=== PATIENT | female | born 1945 | race Caucasian/White ===

== ENCOUNTER 2018-08-29 19:09 | Inpatient (IN) ==
[2018-08-29 20:12] LABS: BASO# 0.01 X1000 (0.0-0.2); BASO% 0.1 % (0.0-0.8); EOS# 0.04 X1000 (0.0-0.7); EOS% 0.5 % (0.0-10.0); HEMATOCRIT 47.5 % (37.0-47.0); HEMOGLOBIN 16.5 g/dL (12.0-16.0); LYMPH# 0.55 X1000 (1.2-3.4); LYMPH% 6.8 % (20.5-51.1); MCH 30.5 PG (27-31); MCHC 34.7 g/dL (33-37); MCV 87.8 FL (81-99); MONO# 0.43 X1000 (0.11-0.59); MONO% 5.3 % (1.7-9.3); MPV 10.3 FL (7.4-10.4); NEUT# 7.05 X1000 (1.4-6.5); NEUT% 87.3 % (42.2-75.2); PLT 161 X1000 (130-400); RBC 5.41 XMIL (4.2-5.4); RDW 12.1 % (11.5-14.5); WBC 8.08 X1000 (4.8-10.8)
[2018-08-29] MEDS ORDERED: NS 1,000 ML IV ONE (20:34)
[2018-08-29] MEDS ORDERED: MORPHINE IV ONE (20:35)
[2018-08-29] MEDS ORDERED: ZOFRAN IV ONE (20:35)
[2018-08-29 20:42] LABS: AGAP 16; ALB/GLOB RATIO 1.7; ALBUMIN 4.3 g/dL (3.5-5.0); ALKALINE PHOSPHATASE 74 U/L (32-104); AMYLASE 29 U/L (20-200); BUN 13 mg/dL (8-22); CHLORIDE 101 mmol/L (98-107); COSMO 288; CREATININE 0.6 mg/dL (0.5-0.9); ESTIMATED GFR > 60; GLUCOSE 112 mg/dL (70-104); GOT 21 U/L (10-30); GPT 14 U/L (10-36); LIPASE 14 U/L (13-60); POTASSIUM 3.6 mmol/L (3.5-5.1); SODIUM 144 mmol/L (136-145); TCO2 27 mmol/L (25-35); TOTAL BILIRUBIN 3.02 mg/dL (0.20-1.00); TOTAL PROTEIN 6.8 g/dL (6.3-8.3)
[2018-08-29] MEDS ORDERED: ZOFRAN IV PRN (23:51)
[2018-08-30] MEDS: NS 1,000 ML IV SCH ×2 (01:45→13:47)
[2018-08-30] MEDS: MORPHINE IV PRN ×3 (02:05→23:59)
--- NOTE | 2018-08-30 06:13 | Diag Imaging Result Doc PS360 ---
CT ABD/PELVIS W/IV CONT ONLY - 08/29/2018 INDICATION: abd pain COMPARISON: 07/10/2018 FINDINGS: The lung bases are clear and the heart size is normal. There is stable or recurrent fluid dilation of proximal small bowel, with collapsed distal small bowel. The transition point appears to be in the right lower quadrant. Slightly decreased, very small fat-containing umbilical ventral hernia. Normal appendix. No free air or drainable fluid. Uterus is absent. Urinary bladder and rectum are normal. The gallbladder is absent. Otherwise all abdominal organs remain normal. Stable mild diverticulosis of the colon. There are moderate degenerative changes of the spine. No acute or suspicious bony lesion. IMPRESSION: Stable or recurrent distal small bowel obstruction. The transition point is probably in the right lower quadrant. This exam was performed using automated exposure control, adjustment of mA or kV according to patient size, and/or use of iterative reconstruction technique Electronically signed by Ho Quispe 08/30/2018 6:11 AM
--- NOTE | 2018-08-30 06:59 | GENERAL SURGERY CONSULTATION ---
DATE: 08/30/2018 REQUESTING PHYSICIAN: Hospitalist service. REASON FOR CONSULTATION: Consult is concerning bowel obstruction. HISTORY OF PRESENT ILLNESS: A 73-year-old, female known to me who started having abdominal pain and came to emergency department. She had a CT scan that showed another bowel obstruction. She did report this time that she has had nausea, vomiting, and the pain was not as severe as it was described for her previous one, but still reported it. She did have a bowel movement the day prior to presentation but they were two very small stools and passed gas. She subsequently has been admitted. She has gotten pain medicine twice but feels a little bit better. PAST MEDICAL HISTORY: Includes hypertension and previous small-bowel obstruction. PAST SURGICAL: Hysterectomy, tonsillectomy, and colon resection. ALLERGIES: Include penicillin. HOME MEDICATIONS: Reviewed. FAMILY HISTORY: Reviewed with the patient and noncontributory. SOCIAL HISTORY: Lives at home. REVIEW OF SYSTEMS: A full 10 point review of systems was obtained and negative except as specified in the HPI. PHYSICAL EXAMINATION: Vital Signs: The patient is currently afebrile. Her vital signs are stable. General Examination: No acute distress. female, looks stated age. HEENT: Normocephalic, atraumatic. Pupils equal, round, and reactive to light. Mucous membranes moist. Oropharynx benign. Neck: Supple. Trachea midline. Cardiovascular: Regular rate and rhythm. Lungs: Grossly clear. Abdomen: Soft. Mildly distended. No real tenderness to palpation. No peritoneal signs. Previous midline scar noted. Extremities: Moves all extremities. Neurologic: Grossly intact. Skin: No signs of jaundice. Vascular: All extremities perfused. LABORATORY: White blood cell count 8, hematocrit 47, platelet count 161,000. Remainder of labs reviewed. Of note, her bilirubin is elevated at 3.02. Imaging reviewed, consistent with bowel obstruction. The gallbladder looks surgically absent. ASSESSMENT AND PLAN: A 73-year-old female with recurrent small-bowel obstruction. Recurrent small bowel obstruction. At this time, the patient clinically looks okay but given her short interval turnaround for a bowel obstruction, I did offer surgical intervention with exploratory laparotomy. I discussed extensively with the patient and her daughter. At this point, they want to contemplate surgery but want to discuss it with other family members. At this point, would keep her nothing per oral and monitor. If they decide on surgical intervention, we will go. Did discuss with them the risks, benefits, and alternatives of the procedure. We could potentially get her through this without surgical intervention but if she comes back in for a third obstruction in a short interval, I would definitely recommend that she needs surgery. We will continue to follow with you. cc: MD Faizan Henriquez MD
--- NOTE | 2018-08-30 07:00 | EKG Report ---
Test Performed on : 08/30/2018 06:55:28 AM Test Reason : chest pain Blood Pressure : / mmHG Vent. Rate : 062 BPM Atrial Rate : 062 BPM P-R Int : 214 ms QRS Dur : 098 ms QT Int : 474 ms P-R-T Axes : 078 000 059 degrees QTc Int : 481 ms Sinus rhythm. with 1st degree AV block. Nonspecific T wave abnormality Prolonged QT Abnormal ECG When compared with ECG of 29-AUG-2018 21:21, (Unconfirmed) No significant change was found Confirmed by Bucky PERES, Robert Caldera ([id number]) on 08/30/2018 10:13:38 PM
--- NOTE | 2018-08-30 07:08 | EKG Report ---
Test Performed on : 08/29/2018 9:21:46 PM Test Reason : md ordered Blood Pressure : / mmHG Vent. Rate : 079 BPM Atrial Rate : 079 BPM P-R Int : 216 ms QRS Dur : 094 ms QT Int : 436 ms P-R-T Axes : 066 -07 042 degrees QTc Int : 499 ms Sinus rhythm. with 1st degree AV block. Minimal voltage criteria for LVH, may be normal variant Nonspecific T wave abnormality Prolonged QT Abnormal ECG When compared with ECG of 09-JUL-2018 22:08, premature ventricular complexes. are no longer present Unconfirmed Result
[2018-08-30 07:27] LABS: BASO# 0.01 X1000 (0.0-0.2); BASO% 0.2 % (0.0-0.8); EOS# 0.12 X1000 (0.0-0.7); EOS% 2.1 % (0.0-10.0); HEMATOCRIT 40.9 % (37.0-47.0); INR 1.04; LYMPH% 21.1 % (20.5-51.1); MCHC 34.2 g/dL (33-37); MCV 90.5 FL (81-99); MONO# 0.43 X1000 (0.11-0.59); MONO% 7.5 % (1.7-9.3); MPV 9.8 FL (7.4-10.4); NEUT# 3.94 X1000 (1.4-6.5); NEUT% 69.1 % (42.2-75.2); PLT 131 X1000 (130-400); PROTIME 14.4 Seconds (11.0-16.0); RBC 4.52 XMIL (4.2-5.4)
[2018-08-30 07:31] LABS: AGAP 9; BUN 14 mg/dL (8-22); CHLORIDE 107 mmol/L (98-107); COSMO 288; CREATININE 0.6 mg/dL (0.5-0.9); ESTIMATED GFR > 60; GLUCOSE 83 mg/dL (70-104); MAGNESIUM 2.2 mg/dL (1.5-2.7); POTASSIUM 3.3 mmol/L (3.5-5.1); SODIUM 145 mmol/L (136-145); TCO2 29 mmol/L (25-35)
--- NOTE | 2018-08-30 13:38 | PROGRESS NOTE ---
DATE: 08/30/2018 SUBJECTIVE: Ms. Lofton presented because she had not been able to have a bowel movement, small bowel obstruction. Abdominal and pelvic CT stable or recurrent distal small bowel obstruction. Transient point is probably at the right lower quadrant. She is not having nausea at this time. Dr. Garcia had seen her. He had talked about doing surgery. I think they would like to wait. At this time, clinically looks okay. Short interval turnaround for a bowel obstruction, so did offer surgical invention, exploratory laparotomy, but they would like to be conservative. She does not have an NG tube in. PHYSICAL EXAMINATION: Vital Signs: Temperature 98.1 degrees, pulse 70, respirations 16, blood pressure 150/65. Height 5 feet 3 inches. Weight 173 pounds. HEENT: Pupils are equal and round. Lungs: Clear in all lung johnson. Cardiovascular Exam: Regular rhythm and rate without murmur or S3. Abdomen: Soft. Skin: Warm and dry. LABORATORY DATA: On review of lab, electrolytes and CBC look okay. PLAN: Will continue conservative therapy, getting normal saline at 75 mL an hour and she is NPO. Will look at her home medications and I guess will continue her medications for now, including her aspirin, her flecainide, and her thyroid. cc: Faizan Garza MD
[2018-08-30] MEDS: NORVASC PO SCH (13:46)
[2018-08-30] MEDS: TAMBOCOR PO SCH ×2 (13:46→20:26)
[2018-08-30] MEDS: SYNTHROID PO SCH (13:46)
[2018-08-30] MEDS ORDERED: PAXIL PO ONE (14:12)
[2018-08-30] MEDS ORDERED: PAXIL PO SCH (14:30)
[2018-08-30] MEDS: MICARDIS PO SCH (15:15)
[2018-08-30] MEDS: ASPIRIN EC PO SCH (20:26)
--- NOTE | 2018-08-31 06:03 | GENERAL SURGERY PROGRESS NOTE ---
DATE: 08/31/2018 SUBJECTIVE: Patient is doing okay. She said he passed some gas. She is wanting to try something to drink. The family wanted to hold off on any kind of surgery. OBJECTIVE: Vital Signs: The patient is currently afebrile. Her vital signs are stable. General: No acute distress. HEENT: Normocephalic, atraumatic. Pupils equal, round, reactive to light. Mucous membranes moist. Oropharynx benign. Neck: Supple. Trachea midline. Cardiovascular: Regular rate and rhythm. Lungs: Grossly clear. Abdomen: Soft, nontender, minimally distended. Extremities: Moves all extremities. Neurologic: Grossly intact. Skin: No signs of jaundice. Vascular: All extremities perfused. LABORATORY: None this morning as of yet. ASSESSMENT AND PLAN: A 73-year-old with recurrent small-bowel obstruction. Recurrent small-bowel obstruction. This time family wants to hold off on any surgery, but the patient is improving. We will start her on a clear liquid diet and see how she does. Informed the patient do not take in too much, and stop if she starts getting full. We will monitor her closely. cc: MD Faizan Henriquez MD
[2018-08-31] MEDS: MORPHINE IV PRN ×5 (06:44→23:12)
[2018-08-31] MEDS: MICARDIS PO SCH (08:16)
[2018-08-31] MEDS: NORVASC PO SCH (08:16)
[2018-08-31] MEDS: TAMBOCOR PO SCH ×3 (08:16→23:40)
[2018-08-31] MEDS: SYNTHROID PO SCH (08:16)
[2018-08-31] MEDS: PAXIL PO SCH (08:16)
[2018-08-31] MEDS: NS 1,000 ML IV SCH ×2 (09:37→23:40)
--- NOTE | 2018-08-31 09:44 | PROGRESS NOTE ---
DATE: 08/31/2018 SUBJECTIVE: Ms. Cali is sitting up on the commode. She has passed some gas, but has not had a bowel movement. She is not nauseated. She is still getting some morphine. Her IV is in her right anticubitus. She is still on a liquid diet. EKG from this morning shows normal sinus rhythm. ASSESSMENT AND PLAN: 1. Patient and family would like to hold off on surgery. The patient seems to be improving. Continue liquid diet. They are trying to think about getting a pain pump for her lower lumbar spine at some point. To try and increase her strength and ambulation, I will get Physical Therapy involved. 2. I reviewed her orders. I do not see any change right now. She is on flecainide 100 mg b.i.d., Synthroid 50 mg daily, Paxil 30 mg a day, Micardis 80 mg p.o. daily. Appears to be in sinus rhythm. She has a history of atrial fibrillation. We will increase activity and get physical therapy. Hopefully the bowels will open up and be able to go home. cc: Faizan Garza MD MTDD
[2018-08-31] MEDS: ASPIRIN EC PO SCH ×2 (19:46→23:40)
[2018-09-01] MEDS ORDERED: MORPHINE ONE (02:42)
--- NOTE | 2018-09-01 06:35 | GENERAL SURGERY PROGRESS NOTE ---
DATE: 09/01/2018 SUBJECTIVE: The patient seems to be doing okay. She has had a bowel movement. She is not sick to her stomach. OBJECTIVE: Vital Signs: The patient is currently afebrile. Her vital signs are stable. General Examination: No acute distress. HEENT: Normocephalic, atraumatic. Pupils equal, round, reactive to light. Mucous membranes moist. Oropharynx benign. Neck: Supple. Trachea midline. Cardiovascular: Regular rate and rhythm. Lungs: Grossly clear. Abdomen: Soft. No distention. No tenderness. Extremities: Moves all extremities. Neurologic: Grossly intact. Skin: No signs of jaundice. Vascular: All extremities perfused. Laboratory: None this morning. ASSESSMENT AND PLAN: A 73-year-old with recurrent small-bowel obstruction. Recurrent small bowel obstruction. At this time, she seems to be doing well. We will put her on a GI soft diet and see how she does. Informed the patient to take it easy with the diet. If she seems to be doing well, hopefully, she can be discharged in the near future. cc: MD Faizan Henriquez MD
[2018-09-01] MEDS: SYNTHROID PO SCH ×2 (07:21→08:20)
[2018-09-01] MEDS: NORVASC PO SCH (08:55)
[2018-09-01] MEDS: PAXIL PO SCH (08:55)
[2018-09-01] MEDS: MICARDIS PO SCH (08:55)
[2018-09-01] MEDS: TAMBOCOR PO SCH (08:55)
--- NOTE | 2018-09-01 09:33 | PROGRESS NOTE ---
DATE: 09/01/2018 SUBJECTIVE: She had a bowel movement yesterday evening. The pain is less. Abdomen nondistended. She is going to try some soft food. OBJECTIVE: Vitals: Temperature 98.1 degrees, pulse 65, respirations 18, blood pressure 151/61. Eyes: Pupils are equal and round. Lungs: Clear in all lung johnson. Cardiovascular: Regular rhythm and rate without murmur or S3. Abdomen: Soft. Skin: Warm and dry. URINE OUTPUT: 2800 mL. ASSESSMENT AND PLAN: 1. Recurrent small bowel obstruction. Seems to be doing better. Advance her diet. See how she does. She may get to go home this evening. She is still getting morphine if needed for pain. 2. Hypothyroidism, appears to be euthyroid. 3. Hypertension. Blood pressure well controlled. She is on Norvasc 5 mg a day, Micardis 80 mg daily. cc: Faizan Garza MD
[2018-09-01] MEDS ORDERED: ULTRAM PO PRN (12:00)
[2018-09-01] MEDS: NS 1,000 ML IV SCH (13:17)
[2018-09-01 14:50] VITALS: BP 132/70
--- NOTE | 2018-09-01 16:29 | HISTORY AND PHYSICAL ---
HISTORY OF PRESENT ILLNESS: She was having abdominal pain and bloating CT of the abdomen showed recurrent distal small obstruction. Transition point is probably in the right lower quadrant. Had not had a bowel movement in several days. Very uncomfortable, abdomen distended. Did not have a lot of nausea. Did not require an NG tube. GI surgery evaluated and offered this. She looked like she was fairly comfortable with some fluids, but this is recurrent small bowel obstruction and she had a recent event and given her short interval turn around for bowel obstruction was offered surgical intervention, exploratory laparotomy, but she wanted to wait and so held her n.p.o. Abdomen seemed to get softer. Plan admitted to the hospital. PAST MEDICAL HISTORY: 1. Hypertension. 2. Previous small bowel obstruction. 3. Status post colon resection. 4. Tonsillectomy. 5. Hysterectomy. ALLERGIES: Include penicillin. FAMILY HISTORY: No history of renal disease or coronary disease. She lives at home. Has very attentive family. Negative for alcohol or tobacco. REVIEW OF SYSTEMS: General: She is not noticing weight gain or loss. No fever or chills, just abdominal bloating, inability to have bowel movement for the last 3 or 4 days. She does have significant arthralgia, especially in her knees and her hips and lower back. Gastrointestinal: No gross hematuria or hematochezia, just abdominal distention. Not passing any gas. Gastrointestinal and Genitourinary: No gross hematuria or dysuria. Neurologic : No focal complaints. hematological : no sighnificant Hx: No significant history. So, plan to admit her. PHYSICAL EXAMINATION: GENERAL: Well developed, well nourished white female. HEENT: Pupils are equal and round. LUNGS: Clear in all lung johnson. CARDIOVASCULAR: Regular rhythm and rate without murmur or S3. ABDOMEN: Soft. Abdomen is distended, slightly distended. Generally uncomfortable and decreased bowel sounds. SKIN: Warm and dry. ASSESSMENT AND PLAN: 1. Recurrent small bowel obstruction. Plan to pursue conservative therapy. Surgery is following. 2. Will watch her blood pressure. cc: Faizan Garza MD [facility]
--- NOTE | 2018-09-01 16:32 | DISCHARGE SUMMARY ---
ADMISSION DATE: 08/30/2018 DISCHARGE DATE: 09/01/2018 HISTORY AND HOSPITAL COURSE: Patient admitted with small bowel obstruction. CT scan seemed to confirm this. She had had an episode a couple of months ago, so given her quick turnaround, Surgery was following. They did offer exploratory laparotomy. She wanted to be conservative and so we kept her NPO. Her bowels started to move, passing gas and she had a bowel movement. Advanced her to soft diet. She would like to go home. I think their plans are to try and pursue a subcutaneous pump for her lower back pain. So, I will discharge her on Norvasc 5 mg a day, aspirin 81 mg a day, Tambocor or flecainide 100 mg b.i.d., Synthroid 50 mcg a day, Paxil 30 mg a day, Micardis 80 mg a day, and her Ultram 50 mg p.o. q.6 hours p.r.n. pain. Will follow up in my office in a couple of weeks. Blood pressure appeared well controlled. Review of her lab really was unremarkable. No anemia. Creatinine is 0.6. cc: Faizan Garza MD
== END 2018-09-01 17:35 | disposition home or self-care (01) | DRG 390 ==
LOC: ED 19:09 → SUATTDRO 08-30 01:23 → EDIPHOLD 08-30 01:23 → 3N 08-30 02:14
PROVIDERS: ADMIT Emergency Medicine; ATTEND Emergency Medicine
CPT/HCPCS: 36415; 74177; 80048; 80053; 82150; 83690; 83735; 84443; 84484; 85025; 85610; 93005; 93010; 96361; 96374; 96375; 96376; 97162; 97530; 99285; A9270; J2270; J2405; J7030; Q9967